=== PATIENT | female | born 1995 | race Caucasian/White ===

== ENCOUNTER 2017-06-02 18:48 | Emergency (ER) | payer SELFPAY ==
[2017-06-02 19:08] VITALS: BP 143/89; BMI 21.6
--- NOTE | 2017-06-02 19:52 | DR.GENAD ---
HPI - PCP Primary Care Physician: TUAN Rosario. - Complaint/Symptoms Chief Complaint:: PT STATES " I HAVE NOT HAD A BM IN A WEEK AND I FEEL REALLY BAD".. Self Treatment fo Chief Complaint: PT HAS BUMPS TO HER RECTAL AREA,,,,, - Nurses notes reviewed Nurses Notes Review: Yes - Source History Provided: Patient - Mode of Arrival Mode of Arrival: Ambulatory - Timing Onset of Chief Complaint: 05/26/17 PMH - PMH Past Medical History: No Past Surgical History: No - Family History History of Family Medical Conditions: No - Social History Does patient currently use any type of tobacco product: No Have you used tobacco products in the last 12 months: No Type of Tobacco Use: None Does any household member use tobacco: No Alcohol Use: None Do you use any recreational Drugs:: Yes (THC..) Lives With: Family Lives Where: Home - infectious screening In the last 2 months have you had wt loss of >10#?: NO Have you had fever, night sweats or hemotysis?: No Have you traveled outside the country in the last 6 months?: No Isolation: Standard PE - Vital Signs Vitals: Temperature 98.3 F Pulse Rate 57 Respiratory Rate 20 Blood Pressure 143/89 O2 Sat by Pulse Oximetry 96 - Discharge Plan Condition: Stable Prescriptions: Fluconazole [DIFLUCAN TAB 150 MG *] 150 mg PO ONCE #2 tab - Follow ups/Referrals Follow ups/Referrals: NFD,None [Primary Care Provider] - 3 days - Instructions Instructions: Vaginitis, [id number] Additional Instructions: RETURN TO ED IF WPRSE
--- NOTE | 2017-06-02 20:40 | RAD ---
HISTORY: 22-year-old female with constipation for 1 week. Study: Single frontal view of the abdomen. Comparison: None. Findings: Evaluation of the abdomen demonstrates a nonobstructive bowel gas pattern with gas and stool througho ut the colon. No radiographic evidence of free intraperitoneal air. No pathological soft tissue mass or calcification can be observed. The bony structures are grossly intact. IMPRESSION: 1. No evidence for acute abdominal pathology identified. Reported By:
[2017-06-02] MEDS ORDERED: ROCEPHIN VIAL 1 GM IM ONE (20:56)
[2017-06-02] MEDS ORDERED: ZITHROMAX TAB 250 MG PO ONE ×2 (20:58→21:01)
[2017-06-02] MEDS ORDERED: XYLOCAINE 1 % (PLAIN) ONE (21:00)
[2017-06-02] MEDS ORDERED: ROCEPHIN VIAL 1 GM ONE (21:01)
== END 2017-06-02 21:24 | disposition home or self-care (01) ==
LOC: ER 19:22
DX: N76.0 Acute vaginitis (principal)
CPT/HCPCS: 74000; 96372; 99282; Q0144; J0696; J2001

== ENCOUNTER 2017-06-27 13:51 | Emergency (ER) | payer SELFPAY ==
[2017-06-27 14:03] VITALS: BP 163/92
[2017-06-27] MEDS ORDERED: NS 1000 ML 1,000 ML IV ONE (14:37)
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
[2017-06-27] MEDS ORDERED: NS 1000 ML 1,000 ML ONE (14:38)
[2017-06-27 14:55] LABS: BASOPHILS % (AUTO) 0.2 % (0.2-1.0); EOSINOPHILS % (AUTO) 0.1 % (0.9-2.9); HEMOGLOBIN 15.2 g/dL (12.0-16.0); LYMPHOCYTES # (AUTO) 1.4 X10^3/uL (1.3-2.9); LYMPHOCYTES % (AUTO) 10.9 % (21.0-51.0); MEAN CORPUSCULAR HEMOGLOBIN 31.6 pg (27.0-34.0); MEAN CORPUSCULAR HGB CONC 34.5 g/dL (33.0-35.0); MEAN CORPUSCULAR VOLUME 91.5 fL (80.0-100.0); MEAN PLATELET VOLUME 8.7 fL (7.4-11.0); MONOCYTES # (AUTO) 1.1 x10^3/uL (0.3-0.8); MONOCYTES % (AUTO) 8.7 % (0.0-13.0); NEUTROPHILS # (AUTO) 10.1 x10^3/uL (2.2-4.8); NEUTROPHILS % (AUTO) 80.1 % (42.0-75.0); PLATELET COUNT 232 X10^3/uL (150.0-450.0); RED BLOOD COUNT 4.81 X10^6/uL (3.5-5.4); RED CELL DISTRIBUTION WIDTH 12.4 % (11.6-16.5); WHITE BLOOD COUNT 12.6 X10^3/uL (3.6-10.0)
[2017-06-27 15:24] LABS: BLOOD UREA NITROGEN 6 mg/dL (7-18); CALCIUM 9.6 mg/dL (8.5-10.1); CARBON DIOXIDE 24.4 mmol/L (21-32); CHLORIDE 105 mmol/L (98-107); CREATININE 0.84 mg/dL (0.55-1.02); SODIUM 143 mmol/L (136-145); eGFR BLACK RACES > 60 (>60); eGFR NON BLACK RACES > 60 (>60)
[2017-06-27] MEDS ORDERED: K-DUR TAB 20 MEQ PO ONE (16:00)
== END 2017-06-27 15:44 | disposition home or self-care (01) ==
LOC: ER 14:09
DX: F12.90 Cannabis use, unspecified, uncomplicated (principal); E87.6 Hypokalemia
CPT/HCPCS: 36415; 80048; 80307; 85025; 93005; 93010; 96365; 99282; 99283; A4222; G0434